=== PATIENT | male | born 1975 | race African-American/Black ===

== ENCOUNTER 2024-02-08 11:13 | Outpatient (AMB) | payer OTHER, SELFPAY ==
--- NOTE | 2024-02-08 11:11 | A.OFFVIS_ITS ---
Intake Visit Reasons: second opinion on erectile dysfunction Intake Note: New Patient presents today for initial visit to establish treatment for : Erectile Dysfunction Urology Medications: none Allergies to Antibiotic: none Blood Thinner: none Diabetic: no Fire Extinguisher Technician Required: No Accompanied by: Self / Same As Patient Allergies No Known Allergies Allergy (Verified 02/08/24 11:50) Medication List - Last Reconciled 02/08/24 by NICOLAS Cortes atorvastatin 20 mg PO DAILY HPI Comments Details: Jessee is a pleasant 48 year old male patient of Dr. Almanza was accompanied by his significant other at today's office visit. He has a PMH of hyperlipidemia. He presents to the office today as a new patient for erectile dysfunction. In discussion with the patient today he reports having followed up with a previous urologist at [facility] at which time he was put on low-dose Cialis daily however did not follow-up as he was not pleased with his visit and presents to the office today for a 2nd opinion. When asked he does report noting somewhat improvement in erections with 5 mg of Cialis daily however was inconsistent. He reports feeling his erectile dysfunction is inconsistent. He reports at times he has no difficulty in obtaining and maintaining erections that are adequate for penetration. He reports symptoms of erectile dysfunction has been present for approximately 1 year. He denies any previous trauma to the area. He otherwise denies any bothersome urinary issues or concerns. He denies denies urinary urgency, urinary frequency, incontinence, nocturia, hematuria, dysuria, foul smelling urine, changes to urinary stream, flank pain, fever, and or chills. He is happy with his current voiding parameters. In office urinalysis results reviewed with the patient today. Discussed at length lifestyle modifications to 6 with erectile dysfunction. Patient currently does not wish to undergo further treatment options for erectile dysfunction although these were discussed at length. Information provided regarding penile rings/pumps. He otherwise offers no other issues or concerns at this time. [facility] Medical History High cholesterol Review of Systems Const All systems reviewed & are unremarkable except as noted in HPI and below Physical Exam Const General: cooperative, healthy appearing, comfortable, no acute distress, well developed, alert and awake Orientation/consciousness: patient oriented x3 Limitations: no limitations HEENT Head: Yes normal to inspection, Yes normocephalic and Yes atraumatic Ears: hearing grossly normal bilaterally Eyes General: appearance normal, both eyes and all related structures Neck Neck: Yes normal visual inspection and Yes trachea midline Chest Chest palpation & inspection: normal inspection of the chest Resp Effort & Inspection: normal respiratory effort and able to speak in complete sentences Cardio Rate: regular rate GI Inspection: Yes normal to inspection General: Yes no CVA tenderness Back/Spine/Pelvis Back: no CVA tenderness Skin General skin exam: no rashes or lesions noted Neuro General: patient oriented x3 Extrem General: Yes normal to inspection Psych Appearance: grossly normal and well kempt Mental Status: mental status grossly normal Speech and movement: Normal speech and movement present and Clear speech present Affect: normal affect Attitude: cooperative Thought process: Normal thought process present Thought content: Normal thought content present Insight: Fair insight present (Psych) Judgement: Fair judgement present (Psych) Results AMB Urinalysis, Automated UA Leukoctes 0 Dennise/uL Last Edit by [facility] on 02/08/24 11:29 UA Nitrite Negative Last Edit by [facility] on 02/08/24 11:29 UA Urobilinogen 0.2 mg/dL Last Edit by [facility] on 02/08/24 11:29 UA Protein 0 mg/dL Last Edit by [facility] on 02/08/24 11:29 UA pH 6.0 Last Edit by [facility] on 02/08/24 11:29 UA Blood 0 Benton/uL Last Edit by [facility] on 02/08/24 11:29 UA Specific [place] 1.015 Last Edit by [facility] on 02/08/24 11:29 UA Ketone Negative Last Edit by [facility] on 02/08/24 11:29 UA Bilirubin 0 mg/dL Last Edit by [facility] on 02/08/24 11:29 UA Glucose 0 mg/dL Last Edit by [facility] on 02/08/24 11:29 Results Reviewed Results Reviewed: Laboratory Last Values Urine pH (Auto) 6.0 02/08/24 11:20 Specific [place] (Auto) 1.015 02/08/24 11:20 Urine Protein (Auto) 0 mg/dL 02/08/24 11:20 Glucose (UA)(Auto) 0 mg/dL 02/08/24 11:20 Urine Ketones (Auto) Negative 02/08/24 11:20 Urine Blood (Auto) 0 Benton/uL 02/08/24 11:20 Urine Nitrite (Auto) Negative 02/08/24 11:20 Urine Bilirubin (Auto) 0 mg/dL 02/08/24 11:20 Urine Urobilinogen (Auto) 0.2 mg/dL 02/08/24 11:20 Leukocyte Esterase (Auto) 0 Dennise/uL 02/08/24 11:20 Assessment & Plan Assessment & Plan (1) Low libido: Code(s): R68.82 - Decreased libido Category: Medical (2) Erectile dysfunction: Code(s): N52.9 - Male erectile dysfunction, unspecified Category: Medical Plan In office urinalysis results reviewed with the patient today; as noted above. Discussed at length lifestyle modifications to assist with erectile dysfunction. Discussed at length potential causes for erectile dysfunction and low libido. Will obtain prolactin, testosterone free and total, LH, SHBG, FSH, and estradiol for further assessment evaluation. Patient reports be happy with current voiding parameters. Information provided regarding urological store for erectile dysfunction therapies/supplies. Follow-up in 1-3 months with labs to be completed prior; or sooner with any issues, concerns, and or questions. Orders: Orders Prolactin 02/08/24 N52.9 - Male erectile dysfunction, unspecified Testosterone, Free/Total 02/08/24 N52.9 - Male erectile dysfunction, unspecified AMB Urinalysis Automated 02/08/24 Z13.9 - Encounter for screening, unspecified Lutenizing Hormone 02/08/24 N52.9 - Male erectile dysfunction, unspecified Sex Hormone Binding Globulin 02/08/24 N52.9 - Male erectile dysfunction, unspecified Follicle Stimulating Hormone 02/08/24 N52.9 - Male erectile dysfunction, unsp ecified Estradiol Ultra Sensitive 02/08/24 E29.1 - Testicular hypofunction, N52.9 - Male erectile dysfunction, unspecified Patient Instructions: The patient had an opportunity to ask questions regarding the treatment plan. All questions were answered. Physical exam, labs, and imaging were discussed and reviewed in detail. As well as risks, benefits, and discussion of treatment choices. No major barriers to understanding were identified. The patient expressed understanding and agreement with the above treatment plan. The patient was made aware they should contact our office by phone for worsening of their current condition, the appearance of new symptoms, or with any questions or concerns. Compliance is encouraged with any medications and follow up testing that is ordered. It is a privilege to be allowed the opportunity to participate in? your urological care.? Again, if you have any questions or conc erns If you have any questions or concerns please do not hesitate to contact me. The office is [phone]. This note is constructed using voice recognition software. While every effort has been made to ensure accuracy community services officer errors may have been included. Yours sincerely, NICOLAS Cortes Coding Level of Care Code New Pt Level 4 (96057) Diagnoses Low libido R68.82 Erectile dysfunction N52.9 Time Spent (min) 35
== END 2024-02-08 11:48 | disposition home or self-care (01) ==
PROVIDERS: PCP Family Medicine; Visit Provider Nurse Practitioner Family
DX: R68.82 Decreased libido (principal); N52.9 Male erectile dysfunction, unspecified
CPT/HCPCS: 99204

== ENCOUNTER → 2024-02-08 11:13 | Outpatient (BNVA) | payer OTHER, SELFPAY | PROVIDERS: PCP Family Medicine; Visit Provider Nurse Practitioner Family | DX: N52.9 Male erectile dysfunction, unspecified (principal); R68.2 Dry mouth, unspecified; E29.1 Testicular hypofunction; R68.82 Decreased libido | CPT/HCPCS: 81003 ==

== ENCOUNTER 2024-04-24 13:54 | Outpatient (AMB) | payer OTHER, SELFPAY ==
--- NOTE | 2024-04-24 14:03 | MHC.OFFVIS ---
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 Almanza was accompanied by his significant other at today's office visit. He has a PMH of hyperlipidemia. He presents to the office today for follow-up. Of note, patient was seen approximately 2 months ago as a new patient for erectile dysfunction at which time labs were ordered for further assessment evaluation and the patient was started on p.r.n. Cialis prior to sexual activity. In discussion with the patient and his partner today they report significant improvement in obtaining erections with p.r.n. Cialis however feel he continues to have issues maintaining his erections. Recent labs results reviewed with the patient today as noted and trended below... 02/25: estradiol 28.7, prolactin 6.5, LH 2.4, FSH 3.8, SHBG 18.6, testosterone 228, free testosterone 9.1 He reports currently his partner is undergoing further assessment evaluation of infertility and he is undergoing semen analysis next Monday with [facility]. We discussed at length potential causes of hypogonadism. He discusses previously following up with a urologist at [facility] at which time he was put on low-dose Cialis daily however did not follow-up as he was not pleased with his visit and therefore presented to our office for a 2nd opinion. He reports feeling his erectile dysfunction is inconsistent. He reports at times he has no difficulty in obtaining and maintaining erections that are adequate for penetration. He reports symptoms of erectile dysfunction has been present for approximately 1 year. He denies any previous trauma to the area. He otherwise denies any bothersome urinary issues or concerns. He denies denies urinary urgency, urinary frequency, incontinence, nocturia, hematuria, dysuria, foul smelling urine, changes to urinary stream, flank pain, fever, and or chills. He is happy with his current voiding parameters. In office urinalysis results reviewed with the patient today. Discussed at length lifestyle modifications to assist with erectile dysfunction. Information provided regarding penile rings/pumps. He otherwise offers no other issues or concerns at this time. [facility] Medical History High cholesterol Review of Systems Const All systems reviewed & are unremarkable except as noted in HPI and below Physical Exam Const General: cooperative, healthy appearing, comfortable, no acute distress, well developed, alert and awake Orientation/consciousness: patient oriented x3 Limitations: no limitations HEENT Head: Yes normal to inspection, Yes normocephalic and Yes atraumatic Ears: hearing grossly normal bilaterally Eyes General: appearance normal, both eyes and all related structures Neck Neck: Yes normal visual inspection and Yes trachea midline Chest Chest palpation & inspection: normal inspection of the chest Resp Effort & Inspection: normal respiratory effort and able to speak in complete sentences Cardio Rate: regular rate GI Inspection: Yes normal to inspection General: Yes no CVA tenderness Back/Spine/Pelvis Back: no CVA tenderness Skin General skin exam: no rashes or lesions noted Neuro General: patient oriented x3 Extrem General: Yes normal to inspection Psych Appearance: grossly normal and well kempt Mental Status: mental status grossly normal Speech and movement: Normal speech and movement present and Clear speech present Affect: normal affect Attitude: cooperative Thought process: Normal thought process present Thought content: Normal thought content present Insight: Fair insight present (Psych) Judgement: Fair judgement present (Psych) Results AMB Urinalysis, Automated UA Leukoctes 0 Dennise/uL Last Edit by Mickey Heerdia on 04/24/24 14:15 UA Nitrite Last Edit by Mickey Heredia on 04/24/24 14:15 UA Urobilinogen 0.2 mg/dL Last Edit by Mickey Heredia on 04/24/24 14:15 UA Protein 15 mg/dL Last Edit by Mickey Heredia on 04/24/24 14:15 UA pH 5.5 Last Edit by Mickey Heredia on 04/24/24 14:15 UA Blood 0 Benton/uL Last Edit by Mickey Heredia on 04/24/24 14:15 UA Specific [place] 1.025 Last Edit by Mickey Heredia on 04/24/24 14:15 UA Ketone Last Edit by Mickey Heredia on 04/24/24 14:15 UA Bilirubin 0 mg/dL Last Edit by Mickey [place]alflores on 04/24/24 14:15 UA Glucose 0 mg/dL Last Edit by Mickey [place] on 04/24/24 14:15 Results Reviewed Results Reviewed: Laboratory Last Values Urine pH (Auto) 5.5 04/24/24 14:13 Specific [place] (Auto) 1.025 04/24/24 14:13 Urine Protein (Auto) 15 mg/dL 04/24/24 14:13 Glucose (UA)(Auto) 0 mg/dL 04/24/24 14:13 Urine Blood (Auto) 0 Benton/uL 04/24/24 14:13 Urine Bilirubin (Auto) 0 mg/dL 04/24/24 14:13 Urine Urobilinogen (Auto) 0.2 mg/dL 04/24/24 14:13 Leukocyte Esterase (Auto) 0 Dennise/uL 04/24/24 14:13 Assessment & Plan Assessment & Plan (1) Erectile dysfunction: Code(s): N52.9 - Male erectile dysfunction, unspecified Category: Medical (2) Low libido: Code(s): R68.82 - Decreased libido Category: Medical (3) Hypogonadism in male: Code(s): E29.1 - Testicular hypofunction Category: Medical Plan In office urinalysis results reviewed with the patient today; as noted above. Discussed at length lifestyle modifications to assist with erectile dysfunction. Discussed at length potential causes for erectile dysfunction and low libido. Will obtain penile Doppler Start Cialis 5 mg daily as discussed and prescribed Continue p.r.n. Cialis prior to sexual activity. Will obtain prolactin, testosterone free and total, LH, SHBG, FSH, and estradiol in 3 months for further assessment evaluation. Patient reports be happy with current voiding parameters. Information provided regarding urological store for erectile dysfunction therapies/supplies. Follow-up in 3 months with labs to be completed prior; or sooner with any issues, concerns, and or questions. Orders: Orders Estradiol Ultra Sensitive 3 Months E29.1 - Testicular hypofunction Prostate Specific Antigen 3 Months N52.9 - Male erectile dysfunction, unspecified, R68.82 - Decreased libido AMB Urinalysis Automated Today Z13.9 - Encounter for screening, unspecified [place] penile Today N52.9 - Male erectile dysfunction, unspecified Follicle Stimulating Hormone 3 Months E29.1 - Testicular hypofunction Lutenizing Hormone 3 Months E11.69 - Type 2 diabetes mellitus with other specified complication, N52.1 - Erectile dysfunction due to diseases classified elsewhere Prolactin 3 Months E29.1 - Testicular hypofunction Sex Hormone Binding Globulin 3 Months E29.1 - Testicular hypofunction Testosterone, Free/Total 3 Months E11.69 - Type 2 diabetes mellitus with other specified complication, N52.1 - Erectile dysfunction due to diseases classified elsewhere Medications: New tadalafil (Cialis) [id number] [facility] [id number] Member [id number] 5 mg PO DAILY 90 tabs 1RF 90 days tadalafil 20 mg PO .PRN 45 tabs 0RF sexual activity 90 days N52.01 - Erectile dysfunction due to arterial insufficiency, N52.9 - Male erectile dysfunction, unspecified Patient Instructions: The patient had an opportunity to ask questions regarding the treatment plan. All questions were answered. Physical exam, labs, and imaging were discussed and reviewed in detail. As well as risks, benefits, and discussion of treatment choices. No major barriers to understanding were identified. The patient expressed understanding and agreement with the above treatment plan. The patient was made aware they should contact our office by phone for worsening of their current condition, the appearance of new symptoms, or with any questions or concerns. Compliance is encouraged with any medications and follow up testing that is ordered. It is a privilege to be allowed the opportunity to participate in? your urological care.? Again, if you have any questions or concerns If you have any questions or concerns please do not hesitate to contact me. The office is [phone]. This note is constructed using voice recognition software. While every effort has been made to ensure accuracy american sign language teacher errors may have been included. Yours sincerely, MERLY Cortes-VICTORIA Coding Level of Care Code Est Pt Level 4 (90123) Diagnoses Erectile dysfunction N52.9 Low libido R68.82 Hypogonadism in male E29.1
== END 2024-04-24 14:44 | disposition home or self-care (01) ==
PROVIDERS: PCP Family Medicine; Visit Provider Nurse Practitioner Family
DX: N52.9 Male erectile dysfunction, unspecified (principal); R68.82 Decreased libido; E29.1 Testicular hypofunction; Z13.9 Encounter for screening, unspecified
CPT/HCPCS: 99214

== ENCOUNTER → 2024-04-24 13:54 | Outpatient (BNVA) | payer OTHER, SELFPAY | PROVIDERS: PCP Family Medicine; Visit Provider Nurse Practitioner Family | DX: N52.9 Male erectile dysfunction, unspecified (principal); R68.82 Decreased libido; E29.1 Testicular hypofunction | CPT/HCPCS: 81003 ==